=== PATIENT | female | born 2000 | race Caucasian/White ===

== ENCOUNTER 2021-12-18 15:57 | Emergency (ER) | payer OTHER ==
[~2021-12-18] VITALS: Ht 167.6 cm; Wt 113.4 kg
[2021-12-18 16:28] VITALS: BP 138/105
--- NOTE | 2021-12-18 16:45 | NUR ---
BIB SELF C/O R THUMB AVALSION WOUND S/P INJURY X TODAY. PMH: DENIES
[2021-12-18] MEDS ORDERED: BACITRACIN OINT 500 UNITS/GM PKT TP ONE ×2 (16:59→17:00)
[2021-12-18] MEDS ORDERED: IBUP-2213 PO (17:03)
[2021-12-18] MEDS ORDERED: BACI1PAC6 TP (17:03)
--- NOTE | 2021-12-18 17:04 | NUR ---
R THUMB IRRIGATED WITH NORMAL SALINE X HYDROGEN PEROXIDE. DRESSED WITH XEROFORM X 1, AND ROLL GAUZE. + CMS
[2021-12-18 17:20] VITALS: BP 127/88
--- NOTE | 2021-12-18 17:20 | NUR ---
Patient discharged with v/s stable. Written and verbal after care instructions given and explained. Patient alert, oriented and verbalized understanding of instructions. Ambulatory with steady gait. All questions addressed prior to discharge. ID band removed. Patient advised to follow up with PMD. Rx of IBUPROFEN, BACITRACIN OINT given. Patient educated on indication of medication including possible reaction and side effects. Opportunity to ask questions provided and answered.
== END 2021-12-18 17:20 | disposition home or self-care (01) ==
LOC: MED 15:57
DX: S61.111A Laceration without foreign body of right thumb with damage to nail, initial encounter (principal); W27.8XXA Contact with other nonpowered hand tool, initial encounter; Y93.89 Activity, other specified; Y92.89 Other specified places as the place of occurrence of the external cause; Y99.8 Other external cause status
CPT/HCPCS: 90471; 90715; 99283

== ENCOUNTER 2022-07-26 17:08 | Emergency (ER) | payer OTHER ==
[~2022-07-26] VITALS: Ht 167.6 cm; Wt 115.7 kg
[~2022-07-26 17:08] MED LIST: BACI-416 TP; IBUP-2213 PO
[2022-07-26 17:15] VITALS: BP 145/67
--- NOTE | 2022-07-26 17:22 | NUR ---
PT AMBULATED TO BED 12
--- NOTE | 2022-07-26 17:30 | NUR ---
RIO STEPHEN AT BEDSIDE FOR EVALUATION
--- NOTE | 2022-07-26 17:35 | NUR ---
21YO FEMALE PT C/O CRAMPING/TWISTING LOWER BACK PAIN X6DAYS. REPORTS SUDDEN INTERMITTENT EPISODES W/ RADIATION TO LOWER ABD. STATES URINARY URGENCY W/ DECREASE IN FREQUENCY. DENIES DYSURIA, N/V/D, FEVER, CHILLS OR RECENT INJURY. PT AAOX4, HOB POSITIONED PER COMFORT. HX: DENIES NKA
[2022-07-26 17:56] LABS: BASOPHILS % (AUTO) 0.5 % (0.0-2.0); EOSINOPHILS # (AUTO) 0.1 K/uL (0-0.4); EOSINOPHILS % (AUTO) 0.9 % (0.0-4.0); HEMATOCRIT 39.9 % (36-48); HEMOGLOBIN 13.5 g/dL (12.0-16.0); LYMPHOCYTES % (AUTO) 40.4 % (20.5-51.1); MEAN CORPUSCULAR HEMOGLOBIN 28 pg (27-31); MEAN CORPUSCULAR HGB CONC 34 g/dL (33-37); MEAN CORPUSCULAR VOLUME 83.3 fL (80-94); MONOCYTES # (AUTO) 0.5 K/uL (0.8-1.0); MONOCYTES % (AUTO) 7.3 % (1.7-9.3); NEUTROPHILS # (AUTO) 3.8 K/uL (1.8-7.7); NEUTROPHILS % (AUTO) 50.9 % (42.2-75.2); PLATELET COUNT (AUTO) 292 K/uL (140-450); RED BLOOD CELL COUNT(AUTO) 4.78 MIL/uL (4.20-5.40); RED CELL DISTRIBUTION WIDTH 13.3 % (11.6-13.7); WHITE BLOOD COUNT (AUTO) 7.5 K/uL (4.8-10.8)
--- NOTE | 2022-07-26 17:57 | NUR ---
The patient's care was reviewed and supervised by TRISTIAN VICTOR RN.
[2022-07-26] MEDS ORDERED: KETOROLAC 30 MG/ML VIAL IM ONE (18:00)
[2022-07-26 18:07] LABS: APPEARANCE,URINE CLEAR (CLEAR); BILIRUBIN,URINE NEGATIVE (NEGATIVE); BLOOD, URINE NEGATIVE (NEGATIVE); COLOR,URINE YELLOW (YELLOW); LEUKOCYTE ESTERASE ,URINE NEGATIVE (NEGATIVE); NITRITE, URINE NEGATIVE (NEGATIVE); PH,URINE 5.5 (5.0-9.0); UGLUCOSE NEGATIVE (NEGATIVE)
[2022-07-26 18:16] LABS: ALBUMIN 3.9 g/dL (3.4-5.0); ANION GAP 10.2 (8-16); CARBON DIOXIDE 25.9 mmol/L (21-32); CREATININE 0.7 mg/dL (0.6-1.3); POTASSIUM 4.1 mmol/L (3.5-5.1); TOTAL BILIRUBIN 0.3 mg/dL (0.0-1.0)
--- NOTE | 2022-07-26 18:16 | NUR ---
us at bedside
[2022-07-26] MEDS ORDERED: KETOROLAC 30 MG/ML VIAL IVP ONE (18:20)
--- NOTE | 2022-07-26 19:25 | NUR ---
REPORT GIVEN TO TOÑO RN. TRANSFER OF CARE AT THIS TIME
--- NOTE | 2022-07-26 19:33 | NUR ---
pt appears to be awake and answering questions appropriately. per pt is still complaining of pain in the RLQ constant 11/27 but pt does not appear to be in distress at this time. Pt denies n/v/d, c/p, and SOB. Safety measures are in place.
[2022-07-26 19:34] VITALS: BP 122/71
[2022-07-26] MEDS ORDERED: MORPHINE SULFATE 2 MG/ML SYR IVP ONE (20:20)
[2022-07-26] MEDS ORDERED: HYDROcodone/APAP 5/325 MG 1 TAB TAB PO ONE (20:40)
[2022-07-26] MEDS ORDERED: IBUP-1842 PO (21:52)
== END 2022-07-26 22:08 | disposition home or self-care (01) ==
LOC: MED 17:08
DX: R10.2 Pelvic and perineal pain (principal); R35.0 Frequency of micturition; Z79.899 Other long term (current) drug therapy
CPT/HCPCS: 36415; 76856; 80053; 81003; 81025; 83690; 85025; 96372; 99285; J1885; Q0092; J2270

== ENCOUNTER 2022-10-30 11:46 | Emergency (ER) | payer OTHER ==
[~2022-10-30] VITALS: Ht 167.6 cm; Wt 116.6 kg
[~2022-10-30 11:46] MED LIST changes: -BACI-416 TP; +BACI-418 TP; +IBUP-1842 PO
[2022-10-30 11:52] VITALS: BP 125/77; PULSE 81; RESP 16; TEMP 97; O2SAT 100
[2022-10-30] MEDS ORDERED: SUD30 PO (12:17)
[2022-10-30] MEDS ORDERED: FLONAS NS (12:17)
[2022-10-30] MEDS ORDERED: IBUP-2213 PO (12:17)
== END 2022-10-30 12:28 | disposition home or self-care (01) ==
LOC: MED 11:46
DX: J32.9 Chronic sinusitis, unspecified (principal); Z79.899 Other long term (current) drug therapy; Z79.1 Long term (current) use of non-steroidal anti-inflammatories (NSAID)
CPT/HCPCS: 99283

== ENCOUNTER 2023-06-18 11:22 | Emergency (ER) | payer OTHER ==
[~2023-06-18] VITALS: Ht 167.6 cm; Wt 120.2 kg
[~2023-06-18 11:22] MED LIST changes: +FLONAS NS; +SUD30 PO
[2023-06-18 12:22] VITALS: BP 140/95; PULSE 98; RESP 18; TEMP 98.3; O2SAT 98
[2023-06-18] MEDS ORDERED: PROM118S5 PO (14:43)
[2023-06-18] MEDS ORDERED: ALBU0.0912 IH (14:43)
[2023-06-18 14:57] VITALS: BP 140/95; PULSE 98; RESP 18; TEMP 98.3; O2SAT 98
== END 2023-06-18 14:58 | disposition home or self-care (01) ==
LOC: MED 11:22
DX: B34.9 Viral infection, unspecified (principal); Z79.899 Other long term (current) drug therapy
CPT/HCPCS: 71045; 99283